=== PATIENT | male | born 1995 | race Caucasian/White ===

== ENCOUNTER 2016-07-17 21:27 | Emergency (ER) | payer OTHER ==
[~2016-07-17] VITALS: Ht 180.3 cm; Wt 90.9 kg
[~2016-07-17 21:27] MED LIST: NO HOME MEDICATIONS; NORCO 325 MG-51 TAB PO
[2016-07-17 21:37] VITALS: TEMP 99.8
[2016-07-17 22:49] VITALS: BP 111/79; PULSE 87
== END 2016-07-17 22:48 | disposition home or self-care (01) ==
LOC: COL.ER 21:27
DX: S81.812A Laceration without foreign body, left lower leg, initial encounter (principal); W22.8XXA Striking against or struck by other objects, initial encounter